=== PATIENT | male | born 1945 | race Native Hawaiian/Other Pacific Islander ===

== ENCOUNTER 2016-08-28 10:16 | Outpatient (CLI) | payer OTHER ==
[~2016-08-28 10:16] MED LIST: CADUET5 MG/10 MG OR; CENTRUM SILVER ULTR1 OR; GLIMEPIRIDE1 MG PO; HM OMEPRAZOLE20 MG OR; LEVEMIR SC; LIPITOR40 MG PO; METF500T PO; UNITH DIRECT50 MCG PO
== END 2016-08-28 19:27 | disposition home or self-care (01) ==
LOC: RAD 10:16
DX: R06.02 Shortness of breath (principal)

== ENCOUNTER 2017-06-16 07:28 | Outpatient (CLI) | payer OTHER ==
[2017-06-16 08:08] LABS: PLATELET COUNT 305 K/uL (142-355)
[2017-06-16 08:20] LABS: POTASSIUM 4.2 mmol/L (3.6-5.2)
== END 2017-06-16 19:31 | disposition home or self-care (01) ==
LOC: LABW 07:28
PROVIDERS: Internal Medicine Endocrinology, Diabetes & Metabolism
DX: E10.9 Type 1 diabetes mellitus without complications (principal); E03.8 Other specified hypothyroidism; D64.89 Other specified anemias; Z79.899 Other long term (current) drug therapy; Z51.81 Encounter for therapeutic drug level monitoring; I10 Essential (primary) hypertension
CPT/HCPCS: 36415; 80053; 80061; 81000; 82043; 82570; 84436; 84443; 84479; 85027

== ENCOUNTER 2018-04-27 06:24 | Outpatient (CLI) | payer OTHER ==
[2018-04-27 06:49] LABS: PLATELET COUNT 319 K/uL (142-355)
[2018-04-27 08:01] LABS: POTASSIUM 4.3 mmol/L (3.6-5.2)
== END 2018-04-27 23:01 | disposition home or self-care (01) ==
LOC: LABW 06:24
PROVIDERS: Internal Medicine
DX: N52.9 Male erectile dysfunction, unspecified (principal); G25.81 Restless legs syndrome; E11.9 Type 2 diabetes mellitus without complications; Z12.5 Encounter for screening for malignant neoplasm of prostate
CPT/HCPCS: 36415; 80053; 80061; 81000; 82043; 82570; 83036; 83540; 83735; 84153; 84402; 84403; 84443; 85027

== ENCOUNTER 2018-12-23 14:41 | Outpatient (CLI) | payer OTHER | END 2018-12-23 19:42 | disposition home or self-care (01) | LOC: RAD 14:41 | DX: J45.909 Unspecified asthma, uncomplicated (principal) ==

== ENCOUNTER 2018-12-24 06:05 | Outpatient (CLI) | payer OTHER ==
[2018-12-24 06:41] LABS: PLATELET COUNT 288 K/uL (142-355)
== END 2018-12-24 23:32 | disposition home or self-care (01) ==
LOC: LABW 06:05
PROVIDERS: Internal Medicine
DX: E11.9 Type 2 diabetes mellitus without complications (principal); E03.8 Other specified hypothyroidism; E29.1 Testicular hypofunction
CPT/HCPCS: 36415; 80053; 80061; 83036; 83735; 84402; 84403; 84439; 84443; 85027

== ENCOUNTER 2019-02-28 05:49 | Outpatient (CLI) | payer OTHER ==
[2019-02-28 06:56] LABS: PLATELET COUNT 281 K/uL (142-355)
== END 2019-02-28 19:45 | disposition home or self-care (01) ==
LOC: LABW 05:49
PROVIDERS: Internal Medicine Pulmonary Disease
DX: J43.2 Centrilobular emphysema (principal); J41.1 Mucopurulent chronic bronchitis
CPT/HCPCS: 36415; 82784; 82785; 85027; 86003

== ENCOUNTER 2019-09-18 09:46 | Outpatient (CLI) | payer OTHER ==
[2019-09-18 10:30] LABS: POTASSIUM 5.2 mmol/L (3.6-5.2)
[2019-09-18 10:52] LABS: PLATELET COUNT 216 K/uL (142-355)
== END 2019-09-18 21:36 | disposition home or self-care (01) ==
LOC: LABW 09:46
PROVIDERS: Internal Medicine Endocrinology, Diabetes & Metabolism
DX: D64.89 Other specified anemias (principal); Z79.899 Other long term (current) drug therapy; E11.9 Type 2 diabetes mellitus without complications; E78.49 Other hyperlipidemia; E03.8 Other specified hypothyroidism
CPT/HCPCS: 36415; 80053; 80061; 81000; 82043; 82570; 83036; 84153; 84436; 84443; 84479; 85027

== ENCOUNTER 2020-05-26 07:27 | Outpatient (CLI) | payer OTHER | END 2020-05-26 21:02 | disposition home or self-care (01) | LOC: LABW 07:27 | PROVIDERS: ATTEND Internal Medicine Endocrinology, Diabetes & Metabolism | DX: E10.9 Type 1 diabetes mellitus without complications (principal) | CPT/HCPCS: 36415; 83036 ==